=== PATIENT | female | born 1950 | race Caucasian/White ===

== ENCOUNTER 2017-08-22 17:01 | Emergency (ER) | payer MEDICARE, MEDICAID ==
[~2017-08-22] VITALS: Ht 162.6 cm; Wt 49.9 kg
[~2017-08-22 17:01] MED LIST: ABILIFY 5 MG TAB5 MG PO; ABILIFY10 MG PO; ACCUNEB SO1.25 MG/1 INH; ACETAMINOPHEN-1 EAC1 PO; ADULT LOW DOSE81 MG PO; ALBUTEROL2.5 MG/0.5 INH; ALDACTONE25 MG PO; ALDACTONE50 MG; ALDACTONE50 MG PO; ALENDRONATE SOD70 MG; ALENDRONATE SOD70 MG PO; ALEVE220 M1 PO; ALEVE220 MG PO; AMANTADINE100 M1; AMLODIPINE; AMLODIPINE BESYL5 MG PO; APAP650 PO; ARIPIPRAZOLE5 MG PO; ASPIR 8181 MG PO; ASPIRIN EC325 M1 PO; ASPIRIN325; ATIVAN1 MG; ATORVASTATIN CA10 MG PO; AUGMENTIN 875875 MG PO; AVELOX 400 MG400 MG PO; AZITHROMYCIN 2250 MG PO; BACTROBAN CREAM30 G1 TOP; BAYER CHEWABLE81 MG; BAYER CHEWABLE81 MG PO; BENADRYL25 MG PO; BENAZEPRIL-HCT1 EA11 PO; BP MED; BUSPIRONE HCL10 MG PO; CARBIDOPA-LEVO1 EAC7 PO; CARISOPRODOL 3350 MG PO; CARISOPRODOL OR; CARVEDILOL3.125 MG PO; CARVEDILOL6.25 MG PO; CEFTIN 250 MG250 MG PO; CELEBREX 200 M200 M1 PO; CHOLESTEROL PILL; CLONAZEPAM PO; COLACE100 MG PO; COMBIVENT INH; COMPAZINE10 M2 PO; COMPAZINE10 MG; COMTAN200 MG PO; COREG3.125 MG PO; COZAAR 25 MG TA25 M2 PO; COZAAR 50 MG TA50 M2 PO; CYMBALTA60 MG PO; DESYREL300 MG PO; DESYREL50 MG PO; DIABETA 5MG TABL5 MG PO; DIAZEPAM10 M1 PO; DIFLUCAN200 MG PO; DOXYCYCLINE 10100 M1 PO; DUONEB 2.5-0.5 M3 ML INH; EFFEXOR XR37.5 MG PO; EFFEXOR XR75 MG PO; ENOXAPARIN40 MG/0.1 SUBQ; FENTANYL PA12 MCG/H1 TP; FENTANYL PA12 MCG/H1 TRANSDERM; FENTANYL PA25 MCG/HR TOP; FENTANYL PA25 MCG/HR TRANSDERM; FLEXERIL PO; FLONASE 0.05%50 MCG NASAL; FLUOXETINE HCL40 MG PO; FOSAMAX 70 MG T70 MG PO; FUROSEMIDE 20 M20 MG PO; HYDROCODON-ACE1 EAC7 PO; HYDROCODONE-AP1 EAC6 PO; HYDROXYZINE HCL50 MG; INCRUSE ELLI62.5 MCG IH; INCRUSE ELLI62.5 MCG INH; INDERAL LA160 M1 PO; INDERAL LA160 MG; IRON325 PO; K-DUR 20 MEQ T20 MEQ PO; K-DUR10 ME1 PO; KEFLEX500 MG PO; KLOR-CON 10 ER10 MEQ PO; KLOR-CON 1010 MEQ PO; LAMICTAL 25 MG25 M1 PO; LAMICTAL100 MG PO; LASIX 20 MG TAB20 MG PO; LASIX 40 MG TAB40 M2 PO; LEVAQUIN 500 M500 M7 PO; LEVAQUIN 750 M750 MG; LEVAQUIN 750 M750 MG PO; LEVOFLOXACIN750 MG PO; LIDOCAINE VISC100 M1 SP; LIDODERM 5%1 PATC1 TRANSDERM; LIDODERM 5%1 PATCH TOP; LIORESAL 10 MG10 MG PO; LIPITOR 20 MG T20 M1; LIPITOR 20 MG T20 M1 PO; LIPITOR10 MG PO; LISINOPRIL; LISINOPRIL5 MG PO; LOMOTIL TABLET1 EACH PO; LOPRESSOR25 PO; LOSARTAN POTASS25 MG PO; MEDROL4 MG PO; MEDROLDOSEPACK PO; MINOCYCLINE HC100 M2 PO; MIRALAX17 GM PO; MOBIC15 MG PO; NAPRELAN375 MG; NAPRELAN375 MG PO; NAPROSYN375 MG PO; NAPROSYN500 MG PO; NEURONTIN 300300 M1 PO; NORCO 10-325 T1 EACH PO; NORCO 5-325 TA1 EACH PO; NORVASC 5 MG TAB5 MG PO; NORVASC2.5 MG PO; NYSTATIN 1100000 U/M PO; OMEPRAZOLE; OMEPRAZOLE40 MG PO; ONDANSETRON HCL4 M2 PO; OXYCODON-ACETA1 EAC1 PO; OXYCODONE HCL30 MG PO; PERCOCET 5-3251 EACH PO; PERCOCET 7.5-31 EACH PO; PERCOCET PO; PHENERGAN 25 MG25 M1; PHENERGAN 25 MG25 M1 PO; PHENERGAN VC-C120 ML PO; PHENERGAN-CODE120 ML PO; POTASSIUM; POTASSIUM20 PO; PREDNISOLONE 5 M5 MG PO; PREDNISONE 10 M10 MG PO; PREDNISONE 2.52.5 M1 PO; PREDNISONE 20 M20 M1 PO; PREDNISONE50 MG PO; PRILOSEC40 MG PO; PROAIR HFA8.5 GM; PROTONIX40 M1 PO; PROZAC20 MG PO; QUETIAPINE FUMA50 MG; REQUIP 1 MG TABL1 M1 PO; REQUIP XL2 MG PO; ROBAXIN 750 MG750 M1; ROBAXIN 750 MG750 M1 PO; SEROQUEL 25 MG25 M1 PO; SEROQUEL 50 MG50 MG; SEROQUEL 50 MG50 MG PO; SERTRALINE HCL50 MG PO; SINEMET CR 50/21 TAB; SINEMET CR 50/21 TAB PO; SOMA250 MG PO; SPIRIVA; SPIRIVA INH; TESSALON PERLE100 MG PO; THROAT LOZENGE1 EACH MM; TOPAMAX 100 MG100 MG; TRAMADOL 50 MG50 MG PO; TRAZODONE 150150 M1 PO; TRAZODONE HCL100 MG PO; TRAZODONE HCL50 MG PO; TRIAMCINOLONE A80 G2; TRIAMCINOLONE A80 G2 TOP; TYLENOL325 MG PO; VALIUM5 MG PO; VENTOLIN HFA 1818 GM INH; VENTOLIN17 GM INH; VICODIN 5-5001 EACH PO; VISTARIL50 MG PO; XANAX 0.5 MG0.5 MG PO; XANAX 1 MG TABLE1 MG PO; ZANAFLEX4 MG; ZANAFLEX4 MG PO; ZANTAC 150MG T150 MG PO; ZETIA10 MG PO; ZOFRAN ODT4 MG PO; ZOFRAN4 MG PO; ZOLOFT 50 MG TA50 M1 PO; ZOLOFT PO; ZOLOFT100 MG PO; ZOLOFT50 MG PO; ZPAK PO; [UNRECOGNIZED DRUG - OTHER]; [UNRECOGNIZED DRUG - REMARK]
[2017-08-22 17:26] VITALS: BP 144/66
== END 2017-08-22 17:28 | disposition home or self-care (01) ==
LOC: M.ERS 17:01
DX: Z71.1 Person with feared health complaint in whom no diagnosis is made (principal); I10 Essential (primary) hypertension; K21.9 Gastro-esophageal reflux disease without esophagitis; G89.29 Other chronic pain; G45.9 Transient cerebral ischemic attack, unspecified; Z90.49 Acquired absence of other specified parts of digestive tract; Z90.710 Acquired absence of both cervix and uterus; Z87.891 Personal history of nicotine dependence; Z88.5 Allergy status to narcotic agent; Z88.6 Allergy status to analgesic agent; Z88.8 Allergy status to other drugs, medicaments and biological substances

== ENCOUNTER 2017-10-16 17:01 | Emergency (ER) | payer MEDICARE, MEDICAID ==
[~2017-10-16] VITALS: Ht 160 cm; Wt 49.9 kg
[2017-10-16 17:33] LABS: ABSOLUTE EOSINOPHILS 0.1 thou/uL (0.0-0.7); ABSOLUTE LYMPHOCYTES 2.2 thou/uL (0.8-5.3); ABSOLUTE MONOCYTES 0.5 thou/uL (0.0-1.2); ABSOLUTE NEUTROPHILS 4.7 thou/uL (1.6-8.1); BASOPHILS 0.6 %; EOSINOPHILS 1.3 %; HEMATOCRIT 30.9 % (37.0-47.0); HEMOGLOBIN 10.7 gm/dL (12.0-15.0); LYMPHOCYTES 29.3 %; MCH 28.8 pg (26.0-34.0); MCHC 34.5 g/dL (28.0-37.0); MCV 83.6 fL (80.0-100.0); MPV 7.5 fl. (7.2-11.1); NUCLEATED RBCS 0 /100WBC; PLATELET COUNT* 189 thou/uL (150-400); POLYS 61.8 %; RDW-CV 14.9 % (10.5-14.5); WBC 7.7 thou/uL (4.0-11.0)
[2017-10-16 17:43] LABS: CALCIUM 8.6 mg/dL (8.5-10.1); CREATININE 1.2 mg/dL (0.6-1.3); POTASSIUM 4.8 mmol/L (3.5-5.1)
[2017-10-16 17:44] LABS: APTT 25.8 Seconds (25.0-31.3); PROTIME 9.8 Seconds (9.20-11.50)
[2017-10-16 17:53] LABS: ALBUMIN 3.5 g/dL (3.4-5.0); TOTAL BILIRUBIN 0.2 mg/dL (<0.1-1.0)
[2017-10-16 18:15] VITALS: BP 106/58
--- NOTE | 2017-10-17 17:54 | EKG ---
[place] [address] ELECTROCARDIOGRAM REPORT Name: JASON JOYA [id number] Admission: 10/16/17 Attend Phys: Discharge: 10/16/17 Date of : 46 Report #: [id number] THIS REPORT FOR: //name// [facility] ED Test Date: 2017-10-16 Test Time: 17:19:55 Pat Name: JASON JOYA Department: Room: Gender: F Book Canvasser: CERTIFIED ADAPTIVE PHYSICAL EDUCATOR : 1950 Requested By: Mason Flor Order Number: [id number] MD: Nigel Hdz Measurements Intervals [place] Rate: 86 P: 78 AR: 75 QRS: 14 QRSD: 155 T: 64 QT: 426 QTc: 510 Interpretive Statements Sinus rhythm Short AR interval Nonspecific intraventricular conduction delay Electronically Signed On 10-17-2017 17:54:09 CDT by Nigel Hdz [email or web address] <ELECTRONICALLY SIGNED> By: Nigel Hdz MD, [facility] 10/17/17 1754 1719 1719 Nigel Hdz MD, FACC /EPI
== END 2017-10-16 18:16 | disposition home or self-care (01) ==
LOC: M.ERS 17:01
PROVIDERS: Family Medicine
DX: Z71.1 Person with feared health complaint in whom no diagnosis is made (principal); I10 Essential (primary) hypertension; F32.9 Major depressive disorder, single episode, unspecified; G20 Parkinson's disease; K21.9 Gastro-esophageal reflux disease without esophagitis; Z87.891 Personal history of nicotine dependence; Z88.1 Allergy status to other antibiotic agents; Z88.8 Allergy status to other drugs, medicaments and biological substances; Z90.710 Acquired absence of both cervix and uterus; Z90.49 Acquired absence of other specified parts of digestive tract; Z86.73 Personal history of transient ischemic attack (TIA), and cerebral infarction without residual deficits

== ENCOUNTER 2017-11-25 23:47 | Inpatient (IN) | payer MEDICARE, MEDICAID ==
[~2017-11-25] VITALS: Ht 162.6 cm; Wt 52.1 kg
[2017-11-25 23:48] VITALS: BP 98/66
[2017-11-26] VITALS (7 sets, daily range): BP systolic 97–124; BP diastolic 47–60
[2017-11-26] MEDS ORDERED: RANITIDINE 150150 M1 PO (00:11)
[2017-11-26] MEDS ORDERED: COLACE100 MG PO (00:12)
[2017-11-26] MEDS ORDERED: CHLORTHALIDONE25 MG PO (00:13)
[2017-11-26] MEDS ORDERED: ZETIA10 MG PO (00:13)
[2017-11-26] MEDS ORDERED: AVAPRO 150 MG150 M1 PO (00:14)
[2017-11-26] MEDS ORDERED: ONDANSETRON HCL4 M2 PO (00:15)
[2017-11-26] MEDS ORDERED: IBUPROFEN 200200 M1 PO (00:15)
[2017-11-26] MEDS ORDERED: HYDROCODONE-AP1 EAC6 PO (00:16)
[2017-11-26 00:40] LABS: ABSOLUTE EOSINOPHILS 0.3 thou/uL (0.0-0.7); ABSOLUTE LYMPHOCYTES 2.1 thou/uL (0.8-5.3); ABSOLUTE MONOCYTES 0.5 thou/uL (0.0-1.2); ABSOLUTE NEUTROPHILS 4.1 thou/uL (1.6-8.1); BASOPHILS 0.4 %; EOSINOPHILS 3.8 %; HEMATOCRIT 25.2 % (37.0-47.0); HEMOGLOBIN 8.5 gm/dL (12.0-15.0); LYMPHOCYTES 30.4 %; MCH 28.8 pg (26.0-34.0); MCHC 33.8 g/dL (28.0-37.0); MONOCYTES 7.3 %; MPV 7.5 fl. (7.2-11.1); NUCLEATED RBCS 0 /100WBC; PLATELET COUNT* 171 thou/uL (150-400); POLYS 58.1 %; RBC 2.96 mil/uL (4.20-5.00); RDW-CV 14.8 % (10.5-14.5)
[2017-11-26 00:49] LABS: CALCIUM 8.7 mg/dL (8.5-10.1); CREATININE 1.1 mg/dL (0.6-1.3); POTASSIUM 3.4 mmol/L (3.5-5.1)
[2017-11-26 01:03] LABS: ALBUMIN 3.2 g/dL (3.4-5.0); TOTAL BILIRUBIN 0.2 mg/dL (<0.1-1.0); TOTAL PROTEIN 6.6 g/dL (6.4-8.2)
[2017-11-26 01:26] LABS: BE 0.8 mmol/L (-2 to +3); HCO3 25.4 mmol/L (22.0-26.0); PCO2 40.6 mmHg (35.0-45.0); PO2 103.7 mmHg (75.0-100.0); pH 7.414 (7.340-7.450)
[2017-11-26 01:34] LABS: URINE BILIRUBIN NEGATIVE (Negative); URINE BLOOD NEGATIVE (Negative); URINE CLARITY CLEAR; URINE COLOR STRAW; URINE GLUCOSE-RANDOM NEGATIVE (Negative); URINE KETONES NEGATIVE (Negative); URINE LEUKOCYTES-REFLEX NEGATIVE (Negative); URINE NITRITE-REFLEX NEGATIVE (Negative); URINE PROTEIN NEGATIVE (Negative); URINE SPECIFIC GRAVITY <= 1.005 (1.005-1.030); URINE UROBILINOGEN 0.2 E.U./dl (0.2-1.0)
[2017-11-26 02:53] LABS: NT-PRO BRAIN NAT PEPTIDE 76 pg/mL (<300); TROPONIN-I LEVEL <0.06 ng/mL (<0.06)
[2017-11-26 02:59] LABS: AMP/METHAMP Negative (Negative); BARBITURATES Negative (Negative); BENZODIAZEPINES Negative (Negative); COCAINE Negative (Negative); METHADONE Negative (Negative); OPIATES POSITIVE (Negative); PCP Negative (Negative); THC Negative (Negative)
--- NOTE | 2017-11-26 03:04 | NUR ---
PT SEDATED AND NOT AROUSABLE FROM LORAZEPAM GIVEN X1 NOTIFIED DR ALEJO GAVE 0.2 FLUMAZENIL PT AWAKE AND RESPONSIVE WITHIN 5 MINS.
--- NOTE | 2017-11-26 05:46 | NUR ---
PATIENT VERY LETHARGIC AND AT TIMES ONLY RESPONDING TO PAINFUL STIMULI/STERNAL RUBS. O2 SATS ON O2 AT 2L/NC 95% AT THIS TIME. CONTINUES TO RECEIVE BREATHING TREATMENTS. DR NOTIFIED OF PATIENT BEING LETHARGIC AND NEW ORDER FOR MEDICATION RECEIVED AND GIVEN. PATIENT STARTING TO RESPOND TP TACTILE STIMULI. WILL CONTINUE TO MONITOR. BED ALARM ON.
--- NOTE | 2017-11-26 11:41 | NUR ---
MET WITH PT TO DISCUSS HOME SITUATION/DC PLANNING. PT ADMITTED FROM THE [facility] [place]. SPOKE WITH BERT THERE [phone]. SHE STATED PT AHD JUST RECENTLY OVER THE LAST WEEK MOVED BACK THERE. HAD MOVED OUT IN NOV ON HER OWN; SHE RETURNED TO THE [facility] FROM [facility] IN [place]. PER BERT, PT DOESN'T USE CANE OR WALKER, STATES PT 'TRIPS' OVER THEM BUT 'SHOULD USE SOMETHING.' BERT STATED THE 'TREMOR'S HAD BEEN GOING ON SINCE HER RETURN AND THAT PT HAD BEEN TAKEN OFF HER 'PARKINSONS MEDS.' ATTEMPTED TO CONTACT [facility], HAD TO LEAVE MESSAGE. PT DROWSY, DID STATE SHE WAS BACK AT THE [facility] AND WAS TRYING TO CALL HER BANK WHEN CM IN ROOM. PT IS ON SERVICE WITH [facility] AND [facility]. WILL FOLLOW
--- NOTE | 2017-11-26 11:57 | NUR ---
DISCUSSED WITH PT ORDER FOR MRI.PT STATES SHE HAS BRAIN CLIPS PLACED AT [facility]. SHE IS UNSURE OF DATE THEY ARE PLACED AND DOES NOT HAVE A CARD. SHE STATES THEY ARE [place] CLIPS AND SHE HAS HAD MRIS SINCE HAVING THE CLIPS PLACED
--- NOTE | 2017-11-26 12:00 | NUR ---
MRI CANCELLED PT DOES NOT HAVE A CARD SAYING TYPE OF COILS PLACED AND IT IS UNKNOWN IF THEY ARE MRI SAFE
--- NOTE | 2017-11-26 15:59 | EKG ---
[place] [address] ELECTROCARDIOGRAM REPORT Name: JASON JOYA Room: [address] ADM IN .R.#: [id number] Admission: 11/26/17 Attend Phys: Doug Neal MD Discharge: Date of : 46 Report #: [id number] THIS REPORT FOR: //name// [facility] ED Test Date: 2017-11-25 Test Time: 23:52:55 Pat Name: JASON JOYA Department: Room: [facility] Gender: F Director Government: CARA Aguayo : 1950 Requested By: Cherry Pope Order Number: [id number] MD: Brock Bond Measurements Intervals [place] Rate: 82 P: -22 MT: 142 QRS: -18 QRSD: 87 T: 51 QT: 399 QTc: 466 Interpretive Statements Sinus rhythm Borderline left axis deviation Compared to ECG 10/16/2017 17:19:55 Short MT interval no longer present Intraventricular conduction delay no longer present Electronically Signed On 11-26-2017 15:59:47 CDT by Brock Bond [email or web address] <ELECTRONICALLY SIGNED> By: Brock Bond MD, FACC 11/26/17 1559 2352 2352 Brock Bond MD, FAC /EPI
--- NOTE | 2017-11-26 19:40 | NUR ---
ASSUMED CARE OF PT FOR JIGNESH ROSARIO, AROUND 1300. THIS RN AGREES WITH ASSESMENT AND CHARTING OF JIGNESH ROSARIO. PT A&O X4. VSS, O2 SAT 94% ON RA. PIPE CONNECTOR IN PLACE TRACING SR WITH NO CHANGES THIS SHIFT. PT HAS REPORTED GENERALIZED BODY PAIN THIS SHIFT THAT HAS BEEN MANAGED WITH PO PAIN MEDICATION, PARTIAL RELIEF. PT EATING AND DRINKING WITHOUT ISSUE. PT UP STABDBY TO BATHROOM TO VOID, ALSO WEARING INCONTINET BRIEFS. PT HAVING TREMORS OF UPPER BODY THIS AFTERNOON - NEUROLOGY CONSULTED. AT SHIFT CHANGE, PT CALLED OUT AND STATED THAT IV WAS HURTING HER. UPON ASSESSMENT IV WAS FOUND TO HAVE INFILTRATED. IV REMOVED. NOC NURSE TO START NEW IV. PT CURRENTLY LYING IN BED WATCHING TV. FALL PRECAUTIONS ARE IN PLACE. CALL LIGHT IS WITHIN REACH. PT PROGRESSING TOWARD GOALS. HOURLY ROUNDING PERFORMED.
[2017-11-27 00:15] VITALS: BP 95/42
--- NOTE | 2017-11-27 01:22 | NUR ---
ASSUMED PT CARE AT 19:30 RECEIVED REPORT FROM NURSE. PT IS ALERT AWAKE ORIENTED X 4 COMPLAINING OF PAIN IN RIGHT HAND. ASSESSMENT THE HAND AND FOUND OUT INFILTRATION FROM IV LINE INFUSING NS. FLUID WAS STOPPED AND IV LINE WAS PULLED OUT. WARM CLOTHES APPLIED AROUND THE EDEMATOUS HAND. HAND WAS ALSO ELEVATED ON PILLOW TO DECREASE SWELLING. BESIDES THAT PT COMPLAIN OF PAIN LEVEL OF 8 IN THE BACK. ASKED FOR NARCO. NARCO WAS ADMINISTERED AT DUE TIME. ASSESSMENT PERFORMED. REFER TO CHART. VITAL SIGNS TAKEN WWITHIN NORMAL LIMIT. PT REFUSES TO WEAR NC 2 L. SAYS THAT SHE DOES NOT NEED IT. O3 SATURATION 96 ON RA. NEW IV LINE STARTED IN RIGHT FOREARM SUCCESSFULLY INSERTED. PT IS CURRENTYL FREE FROM PAIN AND IS SLEEPING. WILL CONTINUE TO MONITOR
[2017-11-27 03:37] VITALS: BP 100/41
[2017-11-27 08:44] VITALS: BP 117/64
[2017-11-27] MEDS ORDERED: LEVAQUIN 750 M750 MG PO (10:25)
[2017-11-27] MEDS ORDERED: PREDNISONE 10 M10 MG PO (10:25)
[2017-11-27 11:06] VITALS: BP 117/64
--- NOTE | 2017-11-27 11:07 | NUR ---
ORDERS NOTED FOR DC BACK TO [facility]. MET WITH PT, SHE HAD A FRIEND IN ROOM THAT WILL TRANSPORT HOME. CALL TO [facility], WILL ACCEPT BACK TODAY. PT IS ON SERVICE WITH [facility]. CALLED AND FAXED DC ORDERS TO [facility] AND TO [facility]. PT DOES NOT WANT HER DTR CALLED. CHART COPIED AND JIGNESH ADAMES HAS NUMBER TO CALL REPORT
--- NOTE | 2017-11-27 13:30 | NUR ---
PT DC'D HOME WITH HOME HEALTH. PT DENIED TREMORS, NO VISIBLE TREMORS NOTED. PT DENIED SOA OR OTHER DISCOMFORTS. PT UP WITH SBA. PT ACKNOWLEDGED DC INSTRUCTIONS AND MEDICATIONS. IV REMOVED INTACT BEFORE DISMISSAL.
--- NOTE | 2017-11-28 10:30 | NUR ---
RECEIVED CALL FROM [facility] RE: PT'S SCRIPTS FROM [facility] YESTERDAY. SHE DENIED THAT THERE WAS COPY IN THE PACKET SENT FROM HOSPITAL. CALL TO [facility], PHARMACY LISTED IN CHART. SPOKE WITH DOTTIE, SHE STATED THEY DID NOT RECEIVE SCRIPTS EITHER. CHART PULLED, COPY OF SCRIPT IN CHART. CALLED IN SCRIPT FOR [facility] AND PREDNISONE CALLED INTO [facility] AND ASKED THAT IT BE DELIVERED TO [facility] IN [place]. UPDATED [facility]
== END 2017-11-27 12:25 | disposition home health service (06) | DRG 192 ==
LOC: M.ERS 23:47 → M.2W 11-26 02:27 → M.TBA-ER 11-26 02:27 → M.2W 11-26 03:12
PROVIDERS: Personal Emergency Response Attendant; ADMIT Internal Medicine
DX: J44.1 Chronic obstructive pulmonary disease with (acute) exacerbation (principal); G20 Parkinson's disease; I10 Essential (primary) hypertension; G47.00 Insomnia, unspecified; F32.9 Major depressive disorder, single episode, unspecified; M54.9 Dorsalgia, unspecified; E78.5 Hyperlipidemia, unspecified; I73.9 Peripheral vascular disease, unspecified; K21.9 Gastro-esophageal reflux disease without esophagitis; Z86.73 Personal history of transient ischemic attack (TIA), and cerebral infarction without residual deficits; Z87.891 Personal history of nicotine dependence; Z90.49 Acquired absence of other specified parts of digestive tract; Z90.710 Acquired absence of both cervix and uterus; Z79.899 Other long term (current) drug therapy; Z88.5 Allergy status to narcotic agent; Z88.8 Allergy status to other drugs, medicaments and biological substances; Z82.49 Family history of ischemic heart disease and other diseases of the circulatory system

== ENCOUNTER 2017-12-08 07:51 | Inpatient (IN) | payer MEDICARE, MEDICAID ==
[~2017-12-08] VITALS: Ht 162.6 cm; Wt 47.2 kg
[~2017-12-08 07:51] MED LIST changes: +AVAPRO 150 MG150 M1 PO; +CHLORTHALIDONE25 MG PO; +IBUPROFEN 200200 M1 PO; +RANITIDINE 150150 M1 PO
[2017-12-08 07:52] VITALS: BP 116/58
[2017-12-08 08:13] LABS: ANION GAP 9 mmol/L (7-16); BUN 31 mg/dL (7-18); CALCIUM 8.9 mg/dL (8.5-10.1); CHLORIDE 102 mmol/L (98-107); CO2 29 mmol/L (21-32); CREATININE 1.1 mg/dL (0.6-1.3); GLUCOSE 108 mg/dL (70-99); POTASSIUM 3.3 mmol/L (3.5-5.1); SODIUM 140 mmol/L (136-145)
[2017-12-08] MEDS ORDERED: OMEPRAZOLE 20 M20 M1 PO (08:16)
[2017-12-08] MEDS ORDERED: ACETAMINOPHEN-1 EAC1 PO (08:17)
[2017-12-08 08:20] LABS: ALBUMIN 3.5 g/dL (3.4-5.0); ALKALINE PHOSPHATASE 63 U/L (46-116); SGOT 17 U/L (15-37); SGPT 19 U/L (30-65); TOTAL BILIRUBIN 0.6 mg/dL (<0.1-1.0); TOTAL PROTEIN 6.7 g/dL (6.4-8.2); TROPONIN-I LEVEL <0.06 ng/mL (<0.06)
[2017-12-08 08:29] LABS: APTT 23.8 Seconds (25.0-31.3); PROTIME 10.1 Seconds (9.20-11.50)
[2017-12-08 10:50] LABS: ABSOLUTE EOSINOPHILS 0.2 thou/uL (0.0-0.7); ABSOLUTE LYMPHOCYTES 2.3 thou/uL (0.8-5.3); ABSOLUTE MONOCYTES 0.9 thou/uL (0.0-1.2); ABSOLUTE NEUTROPHILS 10.9 thou/uL (1.6-8.1); BASOPHILS 0.2 %; EOSINOPHILS 1.2 %; HEMATOCRIT 32.4 % (37.0-47.0); HEMOGLOBIN 11.1 gm/dL (12.0-15.0); LYMPHOCYTES 16.3 %; MCH 28.6 pg (26.0-34.0); MCHC 34.1 g/dL (28.0-37.0); MCV 83.9 fL (80.0-100.0); MONOCYTES 6.5 %; NUCLEATED RBCS 0 /100WBC; PLATELET COUNT* 240 thou/uL (150-400); POLYS 75.8 %; RBC 3.86 mil/uL (4.20-5.00); RDW-CV 14.8 % (10.5-14.5); WBC 14.3 thou/uL (4.0-11.0)
[2017-12-08 11:20] VITALS: BP 126/60
[2017-12-08 11:30] VITALS: BP 125/58
[2017-12-08 15:29] VITALS: BP 101/46
[2017-12-08 20:30] VITALS: BP 96/50
[2017-12-09] VITALS: BP 78/40
[2017-12-09 03:46] LABS: HEMATOCRIT 27.2 % (37.0-47.0); HEMOGLOBIN 9.2 gm/dL (12.0-15.0); MCH 28.9 pg (26.0-34.0); MCV 85.2 fL (80.0-100.0); MPV 7.6 fl. (7.2-11.1); RBC 3.2 mil/uL (4.20-5.00); RDW-CV 15.1 % (10.5-14.5); WBC 8.4 thou/uL (4.0-11.0)
[2017-12-09 03:59] LABS: CALCIUM 7.6 mg/dL (8.5-10.1); CREATININE 0.8 mg/dL (0.6-1.3); MAGNESIUM 1.8 mg/dL (1.8-2.4); POTASSIUM 3.8 mmol/L (3.5-5.1)
[2017-12-09 04:00] VITALS: BP 78/42
[2017-12-09 08:18] VITALS: BP 89/45
--- NOTE | 2017-12-09 12:03 | EKG ---
[place] [address] ELECTROCARDIOGRAM REPORT Name: JASON JOYA Room: [address] IN ..#: [id number] Admission: 12/08/17 Attend Phys: Idania Velasco MD Discharge: Date of : 46 Report #: [id number] THIS REPORT FOR: //name// [facility] ED Test Date: 2017-12-08 Test Time: 08:14:07 Pat Name: JASON JOYA Department: Room: Gender: F Province Archivist: [place] : 1950 Requested By: Mason Flor Order Number: [id number] MD: Orlin Mckinnon Measurements Intervals [place] Rate: 67 P: -15 NC: 154 QRS: -15 QRSD: 90 T: 38 QT: 421 QTc: 445 Interpretive Statements Sinus rhythm LVH by voltage Anterior Q waves, possibly due to LVH Compared to ECG 11/25/2017 23:52:55 Left ventricular hypertrophy now present Q waves now present Electronically Signed On 12-09-2017 12:03:33 CDT by Orlin Mckinnon [email or web address] <ELECTRONICALLY SIGNED> By: Kaci Mckinnon MD, [facility] 12/09/17 1203 3 3 Kaci Mckinnon MD, [facility] /EPI
[2017-12-09 15:50] VITALS: BP 89/47
[2017-12-09 20:00] VITALS: BP 90/52
[2017-12-09 23:30] VITALS: BP 106/60
[2017-12-10 03:45] VITALS: BP 107/52
[2017-12-10 08:15] VITALS: BP 113/60
[2017-12-10 16:00] VITALS: BP 120/54
[2017-12-10 20:35] VITALS: BP 126/62
[2017-12-11 00:11] VITALS: BP 128/66
[2017-12-11 08:15] VITALS: BP 118/68
[2017-12-11] MEDS ORDERED: IBUPROFEN 600600 M1 PO (09:12)
[2017-12-11] MEDS ORDERED: HYDROCODONE-AP1 EAC6 PO (09:12)
[2017-12-11] MEDS ORDERED: TRAMADOL 50 MG50 MG PO (09:12)
[2017-12-11] MEDS ORDERED: LIDOPATCH1 EACH TOP (09:12)
[2017-12-11 10:24] VITALS: BP 118/68
== END 2017-12-11 16:39 | DRG 536 ==
LOC: M.ERS 07:51 → M.ORTHSURG 09:39 → M.TBA-ER 09:39 → M.ORTHSURG 11:17
PROVIDERS: Family Medicine; ADMIT Internal Medicine
DX: S32.592A Other specified fracture of left pubis, initial encounter for closed fracture (principal); I10 Essential (primary) hypertension; G47.00 Insomnia, unspecified; F32.9 Major depressive disorder, single episode, unspecified; K21.9 Gastro-esophageal reflux disease without esophagitis; G89.29 Other chronic pain; G20 Parkinson's disease; W01.0XXA Fall on same level from slipping, tripping and stumbling without subsequent striking against object, initial encounter; I95.9 Hypotension, unspecified; Z90.49 Acquired absence of other specified parts of digestive tract; Z86.73 Personal history of transient ischemic attack (TIA), and cerebral infarction without residual deficits; Z90.710 Acquired absence of both cervix and uterus; Z79.899 Other long term (current) drug therapy; Z88.6 Allergy status to analgesic agent; Z88.8 Allergy status to other drugs, medicaments and biological substances; Z87.891 Personal history of nicotine dependence; Z82.49 Family history of ischemic heart disease and other diseases of the circulatory system; Y93.89 Activity, other specified; Y92.89 Other specified places as the place of occurrence of the external cause; Y99.8 Other external cause status

== ENCOUNTER 2018-01-04 17:14 | Inpatient (IN) | payer MEDICARE, MEDICAID ==
[~2018-01-04] VITALS: Ht 160 cm; Wt 52.6 kg
[~2018-01-04 17:14] MED LIST changes: +IBUPROFEN 600600 M1 PO; +LIDOPATCH1 EACH TOP; +OMEPRAZOLE 20 M20 M1 PO
[2018-01-04 17:16] VITALS: BP 106/47
[2018-01-04 17:54] LABS: ABSOLUTE EOSINOPHILS 0.1 thou/uL (0.0-0.7); ABSOLUTE MONOCYTES 0.6 thou/uL (0.0-1.2); ABSOLUTE NEUTROPHILS 4.5 thou/uL (1.6-8.1); BASOPHILS 0.4 %; EOSINOPHILS 1.5 %; HEMATOCRIT 24.6 % (37.0-47.0); HEMOGLOBIN 8.5 gm/dL (12.0-15.0); MCH 28.6 pg (26.0-34.0); MCHC 34.7 g/dL (28.0-37.0); MCV 82.3 fL (80.0-100.0); MPV 7.5 fl. (7.2-11.1); NUCLEATED RBCS 0 /100WBC; PLATELET COUNT* 166 thou/uL (150-400); POLYS 62.1 %; RBC 2.99 mil/uL (4.20-5.00); RDW-CV 14.9 % (10.5-14.5); WBC 7.3 thou/uL (4.0-11.0)
[2018-01-04 18:03] LABS: APTT 27.5 Seconds (25.0-31.3); PROTIME 10.2 Seconds (9.20-11.50)
[2018-01-04 18:15] LABS: ALBUMIN 3.2 g/dL (3.4-5.0); CALCIUM 8.6 mg/dL (8.5-10.1); CREATININE 1.2 mg/dL (0.6-1.3); POTASSIUM 3.6 mmol/L (3.5-5.1); TOTAL BILIRUBIN 0.4 mg/dL (<0.1-1.0); TOTAL PROTEIN 6.4 g/dL (6.4-8.2)
[2018-01-04 20:56] LABS: BE -0.3 mmol/L (-2 to +3); HCO3 25.7 mmol/L (22.0-26.0); PCO2 48.9 mmHg (35.0-45.0); pH 7.338 (7.340-7.450)
[2018-01-04 21:00] LABS: PO2 137.5 mmHg (75.0-100.0)
--- NOTE | 2018-01-04 21:30 | NUR ---
B/P WAS LOW AND DOCTOR WAS NOTIFIED. PATIENT HAD TWO IV ACCESSES STARTED IN HER EJ SITES. GIVEN A LITER OF NS AND DR. DURON PAGED.
[2018-01-04 22:59] VITALS: BP 106/55
[2018-01-04 23:30] VITALS: BP 112/63
--- NOTE | 2018-01-04 23:30 | NUR ---
PT TO UNIT FROM ER AT 2300. PT IS SLEEPING, DIFFICULT TO AROUSE. IS ABLE TO TELL ME HER NAME AND BDAY BUT WORDS ARE SLURRED. UNABLE TO DO FULL HISTORY DUE TO PATIENTS CONDITION. CIGGERETES AND LIGHTERS SENT DOWN WITH SECURITY. WOUND PICTURES TAKEN. WILL CONT TO MONITOR.
[2018-01-05 04:08] VITALS: BP 103/51
--- NOTE | 2018-01-05 04:36 | NUR ---
END SHIFT: PT RESTED THIS SHIFT AWAKING ONCE ASKING FOR PAIN MEDICATION. PT STATED SHE DID NOT KNOW WHERE SHE WAS AT- IS NOT EASILY RE-ORIENTED. ASSESSMENT UNCHANGED. VSS. SAFETY PRECAUTIONS IN PLACE. CALL LIGHT IN REACH. WILL CONT TO MONITOR
--- NOTE | 2018-01-05 05:45 | NUR ---
END SHIFT UPDATE: THIS RN CALLED INTO ROOM BY PATIENT YELLING OUT. PT IS MUCH MORE AWAKE AND ALERT AT THIS TIME. PT IS STATING THAT SHE IS GOING OUTSIDE TO SMOKE BECAUSE THAT IS WHAT SHE DOES EVERY MORNING AT 0530. THIS RN EXPLAINED TO THE PATIENT THAT SHE WAS IN THE HOSPITAL AND THAT SHE COULD NOT GO OUTSIDE TO SMOKE. NICOTINE PATCH OFFERED AND REFUSED. PT GOT IRRITABLE AND AGGRESSIVE PUSHING BOTH RN AND TECH AND PULLING OFF MONITOR AND THROWING IT ON FLOOR. PT WAS VERY ARGUMENTATIVE AND NOT EASILY TO NEGOTIATE WITH. PT HAD INCONTINENT EPISODE AT THIS TIME AND GOT CLEANED UP. 4 SIDE RAILS UP AT THIS TIME FOR SAFETY. CALL LIGHT IN HAND AND PATIENT IS WATCHING TV. THIS RN WENT BACK INTO ROOM TO COMPLETE HISTORY ON PATIENT THAT WASNT ABLE TO GET DONE AT ADMIT DUE TO PATIENTS MENTAL STATUS AND CONDITION, AND PT STATED "FUCK YOU I'M NOT TELLING YOU SHIT." THIS RN ENSURED PATIENT SAFETY AND BED ALARM ACTIVATION AND LEFT ROOM. WILL CONT TO MONITOR UNTIL SHIFT CHANGE.
[2018-01-05 08:00] VITALS: BP 108/55
--- NOTE | 2018-01-05 08:00 | NUR ---
ASSUMED PT. CARE AND RECEIVED REPORT AT 0730. PT A/OX4 WITH SOME DROWSINESS AT TIMES CLOSING EYES WHILE TALKING. VSS, MONITOR ON TRACING SR. PT. REPORTS PAIN TO LEFT SHOULDER, REQUESTING PAINS MEDICATIONS. DR MULLIGAN NOTIFIED FOR ORDERS. FULL ASSESSMENT COMPLETED, REFER TO CHARTING. PT. REQUESTING PHONE NUMBER TO [employer]. CALL LIGHT IN REACH, FALL PRECAUTIONS IN PLACE. WILL CONTINUE WITH PLAN OF CARE.
--- NOTE | 2018-01-05 09:45 | NUR ---
PT. OFFERED TO GET CLEANED UP BY ALUM OPERATOR. PT. STATES SHE WANTS TO TAKE A SHOWER. DISCUSSED THAT WE ARE NOT SURE OF WEIGHT BEARING LIMITATIONS AT THIS TIME AND THEREFORE CAN NOT COLOR DIPPER SHOWER. PT. REFUSED TO BE CLEANED UP IN BED.
--- NOTE | 2018-01-05 11:19 | EKG ---
[place] [address] ELECTROCARDIOGRAM REPORT Name: JASON JOYA Room: [address] IN [facility]#: [id number] Admission: 01/04/18 Attend Phys: Nereyda Zarco Discharge: Date of : 46 Report #: [id number] THIS REPORT FOR: //name// [facility] ED Test Date: 2018-01-04 Test Time: 17:29:52 Pat Name: JASON JOYA Department: Room: Gender: F Manager Mining: Dede LAN : 1950 Requested By: Mason Flor Order Number: [id number] MD: Isma Gilliam Measurements Intervals [place] Rate: 79 P: 52 [place]: 148 QRS: -21 QRSD: 96 T: 52 QT: 409 QTc: 469 Interpretive Statements Sinus rhythm Probable left ventricular hypertrophy Compared to ECG 12/08/2017 08:14:07 Q waves no longer present Electronically Signed On 01-05-2018 11:18:53 CDT by Isma Gilliam [email or web address] <ELECTRONICALLY SIGNED> By: Isma Gilliam MD, [facility] 01/05/18 1118 1729 1729 Isma Gilliam MD, [facility] /EPI
[2018-01-05 12:18] VITALS: BP 101/37
--- NOTE | 2018-01-05 13:03 | NUR ---
INTO PT. ROOM TO REPOSITION FOR LUNCH. PT. REFUSING TO SIT UP AT APPROPRIATE ANGLE TO EAT AND REPOSITION AT THIS TIME. ATTEMPTED TO SET UP BED AND PT YELLED AT STAFF, AND STATES THAT SHE WILL JUST PUT IT BACK DOWN WHEN WE LEAVE.
--- NOTE | 2018-01-05 15:12 | NUR ---
PT. WALKED HALLS WITH PHYSICAL THERAPY, TOLERATED OKAY. PT. IMPULSIVE NOT USING CALL LIGHT TO GET UP ONCE IN CHAIR. PT. STATES SHE IS OKAY TO WALK BY HERSELF. PT. EDUCATED ON NEED FOR ASSISTANCE AND RECENT FALLS. PT. BECOMING AGITATED WITH STAFF. STATES SHE DID NOT FALL 2 TIMES IN THE LAST 24 HOURS AND THAT SHE DID NOT HAVE ANY NEW FRACTURES. PT. WILL NOT ALLOW STAFF TO HOLD ONTO GAIT BELT WITH AMBULATION. PT. IS WOBBLY WHEN STANDING STILL AND UNABLE TO WALK IN A STRAIGHT LINE WITH WALKER. PT. ATTEMPTED TO GET ON ELEVATOR, STATING SHE WANTED TO GO OUTSIDE. DISCUSSED WITH PT. THAT WE COULD NOT AT THIS TIME AND HEART MONITOR DID NOT KNOCK OUT HAND OUTSIDE. PT. STATES SHE IS LEAVING. ASKED PT. IF HER DAUGHTER WAS AWARE SHE WAS HERE AND IF SHE HAD TALKED TO HER. PT. TELLS STAFF TO NOT CALL HER DAUGHTER, STATE SHE IS GETTING A CAB AND LEAVING AGAINST MEDICAL ADVICE. PT. CURRENTLY SITTING IN CHAIR, ALARM IN PLACE.
--- NOTE | 2018-01-05 16:17 | NUR ---
ATTEMPTED TO CONTACT PT. DAUGHTER, VOICEMAIL LEFT. PT. STATES SHE HAS CALLED A CAB, BUT NEEDS INFORMATION. CAN NOT REMEMBER WHAT INFORMATION SHE NEEDS THOUGH. PT. REMAINS IN CHAIR, IMPULSIVE TO STAND. NOTIFIED CM THAT PT. WANTS TO LEAVE, RICHARD TO CONTACT [facility] TO DETERMINE IF PT. CAN BE ACCEPTED BACK.
--- NOTE | 2018-01-05 16:19 | NUR ---
AT APPROX. 1550 PT. REPORTED CP 10/13. BLOOD PRESSURE 97/61(UNABLE TO GIVE NITRO), EKG OBTAINED. NO CHANGES NOTED. DR. VIRAMONTES PAGED THROUGH SERVICE, AWAITNG CALL BACK AT THIS TIME.
--- NOTE | 2018-01-05 16:23 | NUR ---
CM ATTEMPTED TO SPEAK TO THE PATIENT TO DISCUSS HOME SITUATION, AND DISCHARGE PLANNING, AND TO INFORM OF THE ROLE OF CM. PATIENT ALERT, BUT FORGETFUL. PATIENT STATING 'I AM NOT ANSWERING ANYTHING UNTIL I GET TO SMOKE'. CM ATTEMPTED TO CONTACT PATIENTS DTR AND LEFT A MESSAGE TO RETURN CALL. LEONOR SPOKE TO BERT AT THE [facility] AND SHE INFORMS THAT THE PATIENT HAD JUST RECENTLY RETURNED TO THE [place] BUT HAD FALLEN TWICE SINCE BEING BACK. BERT INFORMS THAT THE FACILITY WILL ACCEPT THE PATIENT BACK AT D/C. CM WILL REMAIN AVAILABLE TO ASSIST AND FOLLOW NEEDED.
--- NOTE | 2018-01-05 17:37 | NUR ---
SPOKE WITH PT. DAUGHTER ABOUT PT. PLAN TO LEAVE AMA VIA PHONE. JINA STATES THAT HER MOM HAS PRETTY MUCH "WROTE HER OFF" AND SHE CAN'T PROVIDE ASSISTANCE WITH GETTING PT. TO STAY. UPDATED CM ON CONVERSATION. PT. CONTINUES TO REFUSE TO SIT IN CHAIR OR BED AND WANTS TO GET DRESSED. PT. AMBULATED TO BATHROOM WITH WALKER. PUT ON BRIEF AND SHORTS BYSELF. PT. CONTINUES TO STATE SHE HAS A CAB COMING. COTTON MACHINE OPERATOR NOTIFIED OF PT. WANTING TO LEAVE AMA, AND THIS RN'S RESERVATIONS ABOUT SITUATION. COTTON MACHINE OPERATOR LESLY UP TO UNIT TO DISCUSS WITH PT. DINNER TRAYS ARRIVED AND PT. AGREEABLE TO EAT DINNER, SITTING IN CHAIR NOW, ALARM IN PLACE.
--- NOTE | 2018-01-05 19:29 | NUR ---
PT. REPORTED THAT CAB WAS ON WAY TO PATIENT SAFETY SITTER AND SHE WAS LEAVING AMA. PT. WAS HEARD DISCUSSING CAB ON PHONE WITH COMPANY. ATTEMPTED TO EDUCATE PT. TO STAY FOR FURTHER THERAPY AND TREATMENT, PT. ADAMANTLY DECLINED TO STAY, PT IS A/OX4. PT. REMINDED THAT SHE DID NOT HAVE WALKER HERE TO USE ONCE IN CAB. PT. STATES SHE IS TAKING WALKER IN ROOM AND WILL BRING BACK. PT. INFORMED THIS IS NOT AN OPTION. PT. STATES SHE IS GOING TO CALL HER BAND LEADER, SHE IS PAYING OF EVERYTHING IN THE ROOM AND SHOULD BE ABLE TO USE IT. FURTHER EDUCATION GIVEN. AMA PAPER SIGNED. WHEN REMOVING PT. IV FROM LEFT JUGLUAR PT. BECAME AGGRESSIVE AND PUSHED MY HAND OUT OF WAY AND ATTEMPTED TO PULL IV OUT. THEAPUETIC COMMUNICATION INITIATED, PT. ALLOWED ME TO REMOVE IV APPROPRIATELY AFTER THIS. PT. WAS TRANSPORTED TO DOOR IN WHEELCHAIR AND ASSISTED INTO CAB FOR SAFETY.
== END 2018-01-05 19:10 | disposition left against medical advice (07) | DRG 543 ==
LOC: M.ERS 17:14 → M.2W 18:55 → M.ORTHSURG 18:55 → M.TBA-ER 18:55 → M.ORTHSURG 19:54 → M.2W 22:35
PROVIDERS: Family Medicine; Personal Emergency Response Attendant; ADMIT Internal Medicine
DX: M80.052A Age-related osteoporosis with current pathological fracture, left femur, initial encounter for fracture (principal); J96.10 Chronic respiratory failure, unspecified whether with hypoxia or hypercapnia; I10 Essential (primary) hypertension; F32.9 Major depressive disorder, single episode, unspecified; G40.909 Epilepsy, unspecified, not intractable, without status epilepticus; G20 Parkinson's disease; K21.9 Gastro-esophageal reflux disease without esophagitis; G47.00 Insomnia, unspecified; G89.29 Other chronic pain; F17.210 Nicotine dependence, cigarettes, uncomplicated; W18.39XA Other fall on same level, initial encounter; Z88.6 Allergy status to analgesic agent; Z88.8 Allergy status to other drugs, medicaments and biological substances; Z90.49 Acquired absence of other specified parts of digestive tract; Z86.73 Personal history of transient ischemic attack (TIA), and cerebral infarction without residual deficits; Z98.890 Other specified postprocedural states; Z90.710 Acquired absence of both cervix and uterus; Z82.49 Family history of ischemic heart disease and other diseases of the circulatory system; Y92.89 Other specified places as the place of occurrence of the external cause; Y93.89 Activity, other specified; Y99.8 Other external cause status

== ENCOUNTER 2018-01-11 18:11 | Inpatient (IN) | payer MEDICARE, MEDICAID ==
[~2018-01-11] VITALS: Ht 160 cm; Wt 45.8 kg
[2018-01-11 18:13] VITALS: BP 99/48
[2018-01-11 18:37] LABS: ABSOLUTE EOSINOPHILS 0.1 thou/uL (0.0-0.7); ABSOLUTE LYMPHOCYTES 1.9 thou/uL (0.8-5.3); ABSOLUTE MONOCYTES 0.5 thou/uL (0.0-1.2); ABSOLUTE NEUTROPHILS 5.3 thou/uL (1.6-8.1); BASOPHILS 0.3 %; EOSINOPHILS 1.6 %; HEMATOCRIT 26.8 % (37.0-47.0); LYMPHOCYTES 24.4 %; MCH 28.4 pg (26.0-34.0); MCHC 33.8 g/dL (28.0-37.0); MCV 84.2 fL (80.0-100.0); MONOCYTES 6.1 %; MPV 8.2 fl. (7.2-11.1); NUCLEATED RBCS 0 /100WBC; PLATELET COUNT* 190 thou/uL (150-400); POLYS 67.6 %; RBC 3.18 mil/uL (4.20-5.00); RDW-CV 15.1 % (10.5-14.5); WBC 7.8 thou/uL (4.0-11.0)
[2018-01-11 18:45] LABS: ANION GAP 8 mmol/L (7-16); BUN 22 mg/dL (7-18); CALCIUM 8.2 mg/dL (8.5-10.1); CHLORIDE 104 mmol/L (98-107); CO2 27 mmol/L (21-32); CREATININE 1.8 mg/dL (0.6-1.3); GLUCOSE 115 mg/dL (70-99); POTASSIUM 3.3 mmol/L (3.5-5.1); SODIUM 139 mmol/L (136-145)
[2018-01-11 18:47] LABS: APTT 26.1 Seconds (25.0-31.3); INR 1.1; PROTIME 10.4 Seconds (9.20-11.50)
[2018-01-11 18:52] LABS: ALBUMIN 3.3 g/dL (3.4-5.0); ALKALINE PHOSPHATASE 152 U/L (46-116); SGOT 17 U/L (15-37); SGPT 12 U/L (30-65); TOTAL BILIRUBIN 0.2 mg/dL (<0.1-1.0); TOTAL PROTEIN 6.4 g/dL (6.4-8.2); TROPONIN-I LEVEL <0.06 ng/mL (<0.06)
[2018-01-12 02:31] LABS: URINE BILIRUBIN NEGATIVE (Negative); URINE BLOOD NEGATIVE (Negative); URINE CLARITY CLEAR; URINE COLOR YELLOW; URINE GLUCOSE-RANDOM NEGATIVE (Negative); URINE KETONES NEGATIVE (Negative); URINE LEUKOCYTES-REFLEX NEGATIVE (Negative); URINE NITRITE-REFLEX NEGATIVE (Negative); URINE PROTEIN NEGATIVE (Negative); URINE UROBILINOGEN 0.2 E.U./dl (0.2-1.0)
[2018-01-12 02:50] LABS: AMP/METHAMP Negative (Negative); BARBITURATES Negative (Negative); BENZODIAZEPINES POSITIVE (Negative); COCAINE Negative (Negative); METHADONE Negative (Negative); OPIATES POSITIVE (Negative); PCP Negative (Negative); THC Negative (Negative)
[2018-01-12 04:38] VITALS: BP 135/63
--- NOTE | 2018-01-12 04:50 | NUR ---
NEW PATIENT ADMITTED TO THE UNIT, PT IS LETHARGIC, TRANSFERRED INTO BED, CHANTING " 89, 89, 89," OVER AND OVER. OPENS EYES WHEN MOVED AROUND IN BED, BUT THEN CURLS UP IN A BALL IN THE BED AND GOES BACK TO SLEEP. PT UNABLE TO ANSWER ADMISSION QUESTIONS. SKIN IS INTACT, INCONTINENT IN BRIEF. BED ALARM ON, TELE MONITOR PLACED ON, WILL CONTINUE TO MONITOR
[2018-01-12 05:00] VITALS: BP 142/64
[2018-01-12 08:20] VITALS: BP 157/118
--- NOTE | 2018-01-12 09:39 | EKG ---
[place] [address] ELECTROCARDIOGRAM REPORT Name: JASON JOYA Room: [address] IN [facility]#: [id number] Admission: 01/12/18 Attend Phys: Idania Velasco MD Discharge: Date of : 46 Report #: [id number] THIS REPORT FOR: //name// [facility] ED Test Date: 2018-01-11 Test Time: 19:39:58 Pat Name: JASON JOYA Department: Room: Gender: F Inside Sales Associate: : 1950 Requested By: Mason Flor Order Number: [id number] MD: Luca De La Garza Measurements Intervals [place] Rate: 63 P: 11 MN: 151 QRS: -23 QRSD: 93 T: 40 QT: 451 QTc: 462 Interpretive Statements Sinus rhythm LVH by voltage Compared to ECG 01/04/2018 17:29:52 No significant changes Electronically Signed On 01-12-2018 9:38:51 CDT by Luca De La Garza [email or web address] <ELECTRONICALLY SIGNED> By: Luca De La Garza MD, [facility] 01/12/18 0938 38 38 Luca De La Garza MD, [facility] /EPI
[2018-01-12 12:00] VITALS: BP 149/98
--- NOTE | 2018-01-12 19:10 | NUR ---
PATIENT IS CONFUSED AND NOT EASILY REDIRECTED. PATIENT HAS SITTER IN ROOM SINCE THIS AM. PATIENT HAS BEEN TAKEN FOR WHEELCHAIR WALKS IN HALLS AND WALKED IN HALLS WITH PHYSICAL THERAPY THIS AFTERNOON. PATIENT HAS EXCELLENT APPETITE. PATIENT DENIES ANY PAIN. PATIENT HAD NEW IV STARTED TO LEFT FOREARM DUE TO OCCULTION ISSES WITH AC SITE. SITTER AT BEDSIDE. WILL CONTINUE TO MONITOR.
[2018-01-13 03:35] VITALS: BP 102/56
[2018-01-13 05:05] LABS: HEMATOCRIT 25.9 % (37.0-47.0); HEMOGLOBIN 8.7 gm/dL (12.0-15.0); MCHC 33.6 g/dL (28.0-37.0); MCV 83.2 fL (80.0-100.0); MPV 8.2 fl. (7.2-11.1); RBC 3.11 mil/uL (4.20-5.00); RDW-CV 15.1 % (10.5-14.5); WBC 4.6 thou/uL (4.0-11.0)
[2018-01-13 05:24] LABS: ALBUMIN 2.7 g/dL (3.4-5.0); CALCIUM 8.2 mg/dL (8.5-10.1); CREATININE 0.9 mg/dL (0.6-1.3); MAGNESIUM 1.8 mg/dL (1.8-2.4); POTASSIUM 4.2 mmol/L (3.5-5.1); TOTAL BILIRUBIN 0.1 mg/dL (<0.1-1.0); TOTAL PROTEIN 5.5 g/dL (6.4-8.2)
--- NOTE | 2018-01-13 06:36 | NUR ---
PT HAS SLEPT WELL OVERNIGHT SINCE ABOUT 2300. UP WITH YONAS VILLALOBOS GB TO BR TO VOID. BEFORE BED UP WITH WALKERGRISELDA GB FOR WALK IN THE HALLS. ALERT AND AWAKE, ORIENTED TO PERSON AND PLACE THIS SHIFT. LFA IVF INFUSING PER PUMP. DORITA KLEIN. AM LABS DRAWN. TELE SR. TAKING PILLS WHOLE WITH WATER WITHOUT DIFFICULTY. SITTER AT BEDSIDE UNTIL PT FULLY ASLEEP AND QUIET, BED ALARM ON FOR SAFETY AND CALL LITE IN EASY REACH. HAD PUDDING AND ICE CREAM AT HS.
[2018-01-13 08:20] VITALS: BP 140/68
[2018-01-13 12:00] VITALS: BP 141/63
[2018-01-13 16:08] VITALS: BP 139/73
--- NOTE | 2018-01-13 17:22 | NUR ---
PATIENT RESTING IN BED. PATIENT DENIES ANY PAIN. PATIENT IS MORE ORIENTED TODAY. PATIENT HAS NOT SET OFF BED ALARM TODAY AND USES CALL LIGHT APPROPRIATELY. PATIENT IS UP STANDBY WITH GAIT BELT AND WALKER. PATIENT DID WALK IN HALLS THIS AFTERNOON WITH TECH. PATIENT HAS GOOD APPETITE. PATIENT DENIES ANY NEEDS AT THIS TIME. CALL LIGHT WITHIN REACH. BED ALARM ON. WILL CONTINUE TO MONITOR.
[2018-01-13 20:15] VITALS: BP 156/75
[2018-01-14 00:18] VITALS: BP 149/73
[2018-01-14 04:03] VITALS: BP 145/75
--- NOTE | 2018-01-14 05:38 | NUR ---
PT SLEPT MOST OF SHIFT. ASSESSMENT DOCUMENTED. MEDS GIVEN PER E-OCT. IV PATENT. PT REPORTED HAVING PAIN ALL OVER, IBPROFEN GIVEN PER E-OCT. PT ORIENTED TO SELF AND SOMETIMES PLACE THIS SHIFT. WILL CONTINUE WITH PLAN OF CARE.
[2018-01-14 08:15] VITALS: BP 162/84
[2018-01-14 12:09] VITALS: BP 161/86
--- NOTE | 2018-01-14 13:49 | NUR ---
CM SPOKE TO THE PATIENT TO DISCUSS HOME SITUATIUON, DISCHARGE PLANNING, AND TO INFORM OF THE ROLE OF CM. PATIENT ALERT, BUT FORGETFUL. NURSING INFORMS THAT PATIENTS CONFUSION IS INTERMITNENT. PATIENT IS KNOWN TO THIS CM FROM A PREVIOUS ADMISSION. PATIENT RESIDES AT THE [facility]. PATIENT USES A WALKER FOR MOBILITY. CM SPOKE BERT AT THE [place] AND SHE INFORMS THAT SHE IS 'CONCERNED ABOUT THE PATIENTS INCREASED CONFUSION AND FALLING'. CM REQUSTED A COPY OF THE PATIENTS DPOA AND BERT AGGREED TO FAX A COPY. CM WILL ADD DPOA COPY TO THE CHART UPON RECEIPT. CM WILL REMAIN AVAILABLE TO ASSIST AND FOLLOW NEEDED.
[2018-01-14 16:00] VITALS: BP 165/85
[2018-01-14 20:41] VITALS: BP 174/94
[2018-01-15] VITALS: BP 171/87
[2018-01-15 04:38] VITALS: BP 170/87
--- NOTE | 2018-01-15 06:14 | NUR ---
Pt c/o headache at beginning of shift that she states had been going on all day; rates 10/10, and improved to 7/10 after hydrocodone/APAP given. Pt alert and oriented, but forgetful at times. BP elevated at 170s/80s-90s. Up to BR with one assist and walker. Will continue to monitor.
[2018-01-15 09:30] VITALS: BP 171/82
--- NOTE | 2018-01-15 09:45 | NUR ---
ASSUMED PT. CARE AND RECEIVED REPORT AT 0730. PT A/OX4, VSS, MONITOR ON TRACING SR. PT. REPORTS PAIN 7/10 IN BACK CURRENTLY. FULL ASSESSMENT COMPLETED, REFER TO CHARTING. PT. COOPERATIVE AND PLEASANT THIS MORNING. ASKING THIS RN IF I SEE THE COBWEBS ON THE WALL AND POINTING TO WHERE THERE IS NOTHING PRESENT. PT. STATES "I KNOW I AM NOT HALLUCINCATING THIS". FALL PRECAUTIONS IN PLACE, CALL LIGHT IN REACH. WILL CONTINUE WITH PLAN OF CARE.
[2018-01-15] MEDS ORDERED: HYDROCODONE-AP1 EAC6 PO (11:46)
[2018-01-15] MEDS ORDERED: LISINOPRIL5 MG PO (11:46)
[2018-01-15] MEDS ORDERED: FERREX 150 PLU1 EAC1 PO (11:46)
[2018-01-15 12:13] VITALS: BP 163/96
[2018-01-15 12:26] VITALS: BP 163/96
--- NOTE | 2018-01-15 14:07 | NUR ---
DC ORDERS RECEIVED. IV AND MONITOR REMOVED. PT. GIVEN DC INSTRUCTIONS AND SCRIPTS. PT. LEFT VIA WHEELCHAIR TO RETURN TO [place] IN CAB, ALL BELONGINGS ACCOUNTED FOR. PT. DAUGHTER LEFT VOICEMAIL TO NOTIFITY OF DISCHARGE.
--- NOTE | 2018-01-15 15:23 | NUR ---
pt dc back to the [facility]. faxed dc oders to [facility]. cab voucher provided.
== END 2018-01-15 14:00 | disposition home health service (06) | DRG 917 ==
LOC: M.ERS 18:11 → M.TBA-ER 01-12 03:03 → M.3W 01-12 03:03 → M.2W 01-14 20:25
PROVIDERS: Family Medicine; Personal Emergency Response Attendant; ADMIT Internal Medicine
DX: T42.4X1A Poisoning by benzodiazepines, accidental (unintentional), initial encounter (principal); G92 Toxic encephalopathy; N17.9 Acute kidney failure, unspecified; E44.1 Mild protein-calorie malnutrition; Z68.1 Body mass index [BMI] 19.9 or less, adult; I12.9 Hypertensive chronic kidney disease with stage 1 through stage 4 chronic kidney disease, or unspecified chronic kidney disease; N18.2 Chronic kidney disease, stage 2 (mild); F32.9 Major depressive disorder, single episode, unspecified; G20 Parkinson's disease; K21.9 Gastro-esophageal reflux disease without esophagitis; F41.9 Anxiety disorder, unspecified; G62.9 Polyneuropathy, unspecified; D53.9 Nutritional anemia, unspecified; G89.29 Other chronic pain; Z90.710 Acquired absence of both cervix and uterus; Z88.5 Allergy status to narcotic agent; Z86.73 Personal history of transient ischemic attack (TIA), and cerebral infarction without residual deficits; Z79.899 Other long term (current) drug therapy; Z88.6 Allergy status to analgesic agent; Z88.8 Allergy status to other drugs, medicaments and biological substances; Z87.891 Personal history of nicotine dependence; Z87.01 Personal history of pneumonia (recurrent); Z87.440 Personal history of urinary (tract) infections; Z87.81 Personal history of (healed) traumatic fracture; Y92.89 Other specified places as the place of occurrence of the external cause

== ENCOUNTER 2018-03-12 21:06 | Observation (INO) | payer MEDICARE, MEDICAID ==
[~2018-03-12] VITALS: Ht 160 cm; Wt 48.1 kg
[~2018-03-12 21:06] MED LIST changes: +FERREX 150 PLU1 EAC1 PO
[2018-03-12 21:07] VITALS: BP 109/54
[2018-03-12 21:58] LABS: URINE BILIRUBIN NEGATIVE (Negative); URINE BLOOD NEGATIVE (Negative); URINE CLARITY CLEAR; URINE COLOR YELLOW; URINE GLUCOSE-RANDOM NEGATIVE (Negative); URINE KETONES NEGATIVE (Negative); URINE LEUKOCYTES-REFLEX TRACE (Negative); URINE NITRITE-REFLEX NEGATIVE (Negative); URINE PROTEIN NEGATIVE (Negative); URINE SPECIFIC GRAVITY 1.015 (1.005-1.030); URINE UROBILINOGEN 0.2 E.U./dl (0.2-1.0)
[2018-03-12 22:03] LABS: SQUAMOUS >10 Many /LPF (0-3); URINE RBC 0-2 Rare /HPF (0-2); URINE WBC-REFLEX 0-5 Rare /HPF (0-5)
[2018-03-12 22:04] LABS: BACTERIA-REFLEX None Seen /HPF (None Seen); CASTS None Seen /LPF (None Seen); CRYSTALS None Seen /LPF (None Seen)
[2018-03-12 22:04] LABS: ABSOLUTE EOSINOPHILS 0.2 thou/uL (0.0-0.7); ABSOLUTE LYMPHOCYTES 2.1 thou/uL (0.8-5.3); ABSOLUTE MONOCYTES 0.7 thou/uL (0.0-1.2); ABSOLUTE NEUTROPHILS 4.1 thou/uL (1.6-8.1); BASOPHILS 0.6 %; EOSINOPHILS 2.3 %; HEMATOCRIT 28.2 % (37.0-47.0); HEMOGLOBIN 9.8 gm/dL (12.0-15.0); LYMPHOCYTES 29.5 %; MCH 28.9 pg (26.0-34.0); MCHC 34.8 g/dL (28.0-37.0); MCV 83.1 fL (80.0-100.0); MONOCYTES 10.1 %; MPV 7.3 fl. (7.2-11.1); NUCLEATED RBCS 0 /100WBC; PLATELET COUNT* 220 thou/uL (150-400); POLYS 57.5 %; RDW-CV 14.7 % (10.5-14.5); WBC 7.2 thou/uL (4.0-11.0)
[2018-03-12 22:12] LABS: CALCIUM 8.7 mg/dL (8.5-10.1); CREATININE 1.2 mg/dL (0.6-1.3); POTASSIUM 3.9 mmol/L (3.5-5.1)
[2018-03-12 22:17] LABS: ALBUMIN 3.3 g/dL (3.4-5.0); TOTAL BILIRUBIN 0.2 mg/dL (<0.1-1.0); TOTAL PROTEIN 6.5 g/dL (6.4-8.2)
[2018-03-12 23:56] VITALS: BP 90/48
[2018-03-13] VITALS: BP 96/56
[2018-03-13 05:24] LABS: ALBUMIN 2.9 g/dL (3.4-5.0); CALCIUM 8.3 mg/dL (8.5-10.1); CREATININE 0.8 mg/dL (0.6-1.3); POTASSIUM 3.8 mmol/L (3.5-5.1); TOTAL BILIRUBIN 0.2 mg/dL (<0.1-1.0); TOTAL PROTEIN 5.4 g/dL (6.4-8.2)
[2018-03-13 08:00] VITALS: BP 122/56
[2018-03-13 14:19] VITALS: BP 122/56
--- NOTE | 2018-03-13 17:30 | EKG ---
[place] [address] ELECTROCARDIOGRAM REPORT Name: JASON JOYA Room: [address]#: [id number] Admission: 03/12/18 Attend Phys: Doug Neal MD Discharge: 03/13/18 Date of : 46 Report #: [id number] THIS REPORT FOR: //name// [facility] ED Test Date: 2018-03-12 Test Time: 21:20:17 Pat Name: JASON JOYA Department: Room: [facility] Gender: F Warehouse Assistant: AP : 1950 Requested By: Anna George Order Number: [id number] : Nigel Hdz Measurements Intervals [place] Rate: 74 P: 58 SC: 150 QRS: -19 QRSD: 96 T: 40 QT: 414 QTc: 460 Interpretive Statements Sinus rhythm Probable left ventricular hypertrophy Compared to ECG 01/11/2018 19:39:58 No significant changes Electronically Signed On 03-13-2018 17:30:31 CDT by Nigel Hdz [email or web address] <ELECTRONICALLY SIGNED> By: Nigel Hdz MD, [facility] 03/13/18 1730 19 19 Nigel Hdz MD, [facility] /EPI
== END 2018-03-13 16:35 | disposition home or self-care (01) ==
LOC: M.ERS 21:06 → M.ORTHSURG 23:11 → M.TBA-ER 23:11 → M.ORTHSURG 23:11
PROVIDERS: Emergency Medicine; ADMIT Internal Medicine
DX: E87.1 Hypo-osmolality and hyponatremia (principal); I95.9 Hypotension, unspecified; S00.81XA Abrasion of other part of head, initial encounter; S50.312A Abrasion of left elbow, initial encounter; S80.211A Abrasion, right knee, initial encounter; J44.1 Chronic obstructive pulmonary disease with (acute) exacerbation; G93.40 Encephalopathy, unspecified; G20 Parkinson's disease; I10 Essential (primary) hypertension; F41.9 Anxiety disorder, unspecified; G62.9 Polyneuropathy, unspecified; F32.9 Major depressive disorder, single episode, unspecified; K21.9 Gastro-esophageal reflux disease without esophagitis; G89.29 Other chronic pain; F17.210 Nicotine dependence, cigarettes, uncomplicated; W19.XXXA Unspecified fall, initial encounter; Y93.89 Activity, other specified; Y92.89 Other specified places as the place of occurrence of the external cause; Y99.8 Other external cause status; Z86.73 Personal history of transient ischemic attack (TIA), and cerebral infarction without residual deficits

== ENCOUNTER → 2018-09-30 | Outpatient (CLI) | payer OTHER, MEDICAID | LOC: M.RAD 01:00 | DX: J44.1 Chronic obstructive pulmonary disease with (acute) exacerbation (principal) ==

== ENCOUNTER 2019-01-08 21:40 | Emergency (ER) | payer OTHER, MEDICAID ==
[~2019-01-08] VITALS: Ht 162.6 cm; Wt 55.4 kg
[~2019-01-08 21:40] MED LIST changes: +COZAAR 25 MG TA25 M1 PO; +GUAIFEN-CODEINE10 ML PO; +MUCINEX600 MG PO; +REMERON15 MG PO; +SINGULAIR 10 MG10 M1 PO
[2019-01-08] MEDS ORDERED: BREO ELLIPTA 11 EACH INH (21:53)
[2019-01-08] MEDS ORDERED: IPRAT-ALBUT 0.5-3 ML INH (21:53)
[2019-01-08] MEDS ORDERED: FLEXERIL PO (21:53)
[2019-01-08] MEDS ORDERED: ESGIC 50-325-41 EACH PO (21:54)
[2019-01-08] MEDS ORDERED: MOBIC15 MG PO (21:54)
[2019-01-08] MEDS ORDERED: HYDROCODON-ACE1 EAC7 PO (22:18)
[2019-01-08 23:04] VITALS: BP 115/66
== END 2019-01-08 23:06 | disposition home or self-care (01) ==
LOC: M.ERS 21:40
DX: G89.29 Other chronic pain (principal); M54.5 Low back pain; M54.6 Pain in thoracic spine; I10 Essential (primary) hypertension; G20 Parkinson's disease; F17.210 Nicotine dependence, cigarettes, uncomplicated; Z88.6 Allergy status to analgesic agent; Z88.5 Allergy status to narcotic agent; Z88.8 Allergy status to other drugs, medicaments and biological substances; Z86.73 Personal history of transient ischemic attack (TIA), and cerebral infarction without residual deficits

== ENCOUNTER 2019-06-20 19:45 | Emergency (ER) | payer MEDICARE, MEDICAID ==
[~2019-06-20] VITALS: Ht 162.6 cm; Wt 51.3 kg
[~2019-06-20 19:45] MED LIST changes: +BIOFREEZE118 ML TOP; +BREO ELLIPTA 11 EACH INH; +ESGIC 50-325-41 EACH PO; +IPRAT-ALBUT 0.5-3 ML INH
[2019-06-20] MEDS ORDERED: NEURONTIN 400400 M1 PO (20:02)
[2019-06-20 21:32] LABS: CALCIUM 8.6 mg/dL (8.5-10.1); CREATININE 1.5 mg/dL (0.6-1.3); POTASSIUM 4.5 mmol/L (3.5-5.1)
[2019-06-20 21:37] LABS: URINE BILIRUBIN NEGATIVE (Negative); URINE BLOOD NEGATIVE (Negative); URINE CLARITY CLEAR; URINE COLOR YELLOW; URINE GLUCOSE-RANDOM NEGATIVE (Negative); URINE KETONES 1+ (Negative); URINE LEUKOCYTES-REFLEX NEGATIVE (Negative); URINE NITRITE-REFLEX NEGATIVE (Negative); URINE PROTEIN NEGATIVE (Negative); URINE SPECIFIC GRAVITY 1.025 (1.005-1.030); URINE UROBILINOGEN 0.2 E.U./dl (0.2-1.0)
[2019-06-20] MEDS ORDERED: PERCOCET 7.5-31 EAC1 PO (21:56)
[2019-06-20] MEDS ORDERED: FLAGYL500 M1 PO (21:56)
[2019-06-20 23:08] VITALS: BP 124/72
== END 2019-06-20 23:55 | disposition home or self-care (01) ==
LOC: M.ERS 19:45
PROVIDERS: Emergency Medicine
DX: S92.342A Displaced fracture of fourth metatarsal bone, left foot, initial encounter for closed fracture (principal); S92.352A Displaced fracture of fifth metatarsal bone, left foot, initial encounter for closed fracture; R19.7 Diarrhea, unspecified; F17.210 Nicotine dependence, cigarettes, uncomplicated; Z86.73 Personal history of transient ischemic attack (TIA), and cerebral infarction without residual deficits; Z90.710 Acquired absence of both cervix and uterus; Z88.6 Allergy status to analgesic agent; Z88.5 Allergy status to narcotic agent; Z88.8 Allergy status to other drugs, medicaments and biological substances; W18.39XA Other fall on same level, initial encounter; Y93.89 Activity, other specified; Y92.89 Other specified places as the place of occurrence of the external cause; Y99.8 Other external cause status

== ENCOUNTER 2019-07-12 17:35 | Emergency (ER) | payer MEDICARE, MEDICAID ==
[~2019-07-12] VITALS: Ht 162.6 cm; Wt 51.3 kg
[~2019-07-12 17:35] MED LIST changes: +FLAGYL500 M1 PO; +NEURONTIN 400400 M1 PO; +PERCOCET 7.5-31 EAC1 PO
[2019-07-12 17:36] VITALS: BP 146/79
== END 2019-07-12 18:28 ==
LOC: M.ERS 17:35
DX: S81.811A Laceration without foreign body, right lower leg, initial encounter (principal); I10 Essential (primary) hypertension; G20 Parkinson's disease; F17.210 Nicotine dependence, cigarettes, uncomplicated; Z90.710 Acquired absence of both cervix and uterus; Z86.73 Personal history of transient ischemic attack (TIA), and cerebral infarction without residual deficits; Z88.6 Allergy status to analgesic agent; Z88.8 Allergy status to other drugs, medicaments and biological substances; W01.0XXA Fall on same level from slipping, tripping and stumbling without subsequent striking against object, initial encounter; Y93.89 Activity, other specified; Y92.128 Other place in nursing home as the place of occurrence of the external cause; Y99.8 Other external cause status